=== PATIENT | female | born 1965 | race American Indian/Alaskan Native ===

== ENCOUNTER 2017-06-06 12:50 | Emergency (ER) | payer OTHER ==
--- NOTE | 2017-06-06 13:38 | Emergency Department Report ---
Entered by HOLDEN NEVAREZ, acting as scribe for HALEY DAVIS NP. Chief Complaint: Pain General Stated Complaint: CONSTIPATION/GAS/HEMORRHOIDS Time Seen by Provider: 06/06/17 13:20 - HPI History of Present Illness: Pt is a 51 y.o. female who presents to ED for evaluation of one month hx of recurrent constipation with associated rectal pain when straining to stool. She states that her last BM was yesterday, at which time she was only able to produce a small amount of stool despite significant straining. Prior to that, two days ago she had 2-3 BMs. She denies blood in stool, fever, headache, chest pain, or N/V. Pt is prescribed daily Miralax. - ROS Review of Systems: positive for constipation and rectal pain negative for blood in stool, fever, headache, chest pain, or N/V - Exam Vital Signs: Vital Signs 06/06/17 13:14 Temperature 98.1 F Pulse Rate 102 H Respiratory 20 Rate Blood Pressure 188/102 O2 Sat by Pulse 97 Oximetry Physical Exam: Constitutional: Well-developed, well-nourished. NAD. Abdominal: Soft, non-tender Neuro: A&Ox3 MSE screening note: Focused history and physical exam performed. Due to findings the following was ordered: Ordered labs and abdominal x-ray ED Disposition for MSE Condition: Stable This documentation as recorded by the scribe,HOLDEN NEVAREZ,accurately reflects the service I personally performed and the decisions made by ,HALEY DAVIS NP.
[2017-06-06 14:07] LABS: Basophils % (Auto) 0.6 % (0.0-1.8); Eosinophils % (Auto) 0.4 % (0.0-4.3); Hematocrit 45.8 % (30.3-42.9); Hemoglobin 15.5 gm/dl (10.1-14.3); Mean Corpuscular HGB Conc 34 % (30-34); Mean Corpuscular Hemoglobin 32 pg (28-32); Mean Corpuscular Volume 95 fl (79-97); Platelet Count 306 K/mm3 (140-440); Red Blood Count 4.84 M/mm3 (3.65-5.03); Red Cell Distribution Width 13.4 % (13.2-15.2); White Blood Count 9.4 K/mm3 (4.5-11.0)
[2017-06-06 14:16] LABS: Alanine Aminotransferase 19 units/L (7-56); Albumin 4.7 g/dL (3.9-5); Albumin/Globulin Ratio 1.5 %; Alkaline Phosphatase 111 units/L (35-129); Anion Gap 22 mmol/L; BUN/Creatinine Ratio 13.33; Blood Urea Nitrogen 8 mg/dL (7-17); Calcium 9.6 mg/dL (8.4-10.2); Carbon Dioxide 22 mmol/L (22-30); Glucose 120 mg/dL (65-100); Lipase 18 units/L (13-60); Potassium 3.6 mmol/L (3.6-5.0); Sodium 141 mmol/L (137-145); Total Protein 7.9 g/dL (6.3-8.2)
--- NOTE | 2017-06-06 14:27 | XRay Report ---
SUPINE KUB: History: Abdominal pain. The abdominal gas pattern is unremarkable. No masses or organomegaly is identified and there is no gross evidence of free air or fluid. No significant soft tissue calcifications are noted. IMPRESSION: Normal study.
--- NOTE | 2017-06-06 20:42 | Emergency Department Report ---
HPI - General Chief Complaint: Pain General Time Seen by Provider: 06/06/17 13:20 - HPI HPI: Room 5 The patient is a 51-year-old female presenting with chief complaint of constipation and rectal irritation. The patient states she's been constipated for several months for the past 2 months she is intermittently uses laxatives with temporary relief. The patient states her last bowel movement occurred yesterday and just a small amount. Patient states for the past week she has had rectal soreness whenever she sits down. Patient denies any pain when not applying direct pressure to her buttocks. Patient denies bright red blood per rectum or unexplained weight loss. Patient denies pain while having a bowel movement. Patient denies any history of fever. When asked how she is currently feeling the patient states she feels "good" and is just hungry. Location: Gastrointestinal system Duration: [see above] Quality: Constipation Severity: Moderate Modifying factors: [see above] Context: [see above] Mode of transportation: Unknown ED Past Medical Hx - Past Medical History Previous Medical History?: Yes Hx Hypertension: Yes - Surgical History Past Surgical History?: No - Family History Family history: no significant - Social History Smoking Status: Current Every Day Smoker Substance Use Type: None (denies illicit drug use), Prescribed, Other - Medications Home Medications: Home Medications Medication Instructions Recorded Confirmed Last Taken Type HYDROcodone/APAP 10-325 [[place] 1 each PO Q6HR PRN #10 tablet 09/27/15 Unknown Rx 10/325] amLODIPine [Norvasc] 10 mg PO DAILY #30 tab 09/27/15 Unknown Rx Docusate Sodium [Colace] 100 mg PO BID #60 capsule 06/06/17 Unknown Rx Hydrocortisone [Anucort-HC SUPPOS] 25 mg RC BID #10 supp.rect 06/06/17 Unknown Rx Lactulose [Cephulac] 20 gm PO QDAY #90 ml 06/06/17 Unknown Rx ED Review of Systems ROS: Stated complaint: CONSTIPATION/GAS/HEMORRHOIDS Other details as noted in HPI Comment: All other systems reviewed and negative Constitutional: denies: chills, fever Eyes: denies: eye pain, eye discharge, vision change ENT: denies: ear pain, throat pain Respiratory: denies: cough, shortness of breath, wheezing Cardiovascular: denies: chest pain, palpitations Endocrine: no symptoms reported Gastrointestinal: constipation Genitourinary: denies: urgency, dysuria, discharge Musculoskeletal: denies: back pain, joint swelling, arthralgia Skin: denies: rash, lesions Neurological: denies: headache, weakness, paresthesias Psychiatric: denies: anxiety, depression Hematological/Lymphatic: denies: easy bleeding, easy bruising Physical Exam - Physical Exam Vital Signs: Vital Signs 06/06/17 13:14 Temperature 98.1 F Pulse Rate 102 H Respiratory 20 Rate Blood Pressure 188/102 O2 Sat by Pulse 97 Oximetry Physical Exam: GENERAL: The patient is well-developed well-nourished female lying on stretcher not appearing to be in acute distress. [] HEENT: Normocephalic. Atraumatic. Extraocular motions are intact. Patient has moist mucous membranes. NECK: Supple. No meningitic signs are noted. There is no adenopathy noted. CHEST/LUNGS: Clear to auscultation. There is no respiratory distress noted. HEART/CARDIOVASCULAR: Regular. There is no tachycardia. There is no gallop rub or murmur. ABDOMEN: Abdomen is soft, nontender. Patient has normal bowel sounds. There is no abdominal distention. SKIN: There is no rash. There is no edema. There is no diaphoresis. NEURO: The patient is awake, alert, and oriented. The patient is cooperative. The patient has normal speech MUSCULOSKELETAL: There is no evidence of acute injury. RECTAL: No external hemorrhoids visualized. No internal hemorrhoids palpated. No fecal impaction detected. Guaiac negative ED Course Vital Signs 06/06/17 13:14 Temperature 98.1 F Pulse Rate 102 H Respiratory 20 Rate Blood Pressure 188/102 O2 Sat by Pulse 97 Oximetry ED Medical Decision Making - Lab Data Result diagrams: 06/06/17 13:39 06/06/17 13:39 Laboratory Tests 06/06/17 06/06/17 13:39 13:39 WBC 9.4 RBC 4.84 Hgb 15.5 H Hct 45.8 H MCV 95 MCH 32 MCHC 34 RDW 13.4 Plt Count 306 Lymph % (Auto) 24.4 [place] % (Auto) 7.1 Eos % (Auto) 0.4 Baso % (Auto) 0.6 Lymph # 2.3 [place] # 0.7 Eos # 0.0 Baso # 0.1 Seg Neutrophils % 67.5 Seg Neutrophils # 6.4 Sodium 141 Potassium 3.6 Chloride 101.0 Carbon Dioxide 22 Anion Gap 22 BUN 8 Creatinine 0.6 L Estimated GFR > 60 BUN/Creatinine Ratio 13.33 Glucose 120 H Calcium 9.6 Total Bilirubin 0.40 AST 20 ALT 19 Alkaline Phosphatase 111 Total Protein 7.9 Albumin 4.7 Albumin/Globulin Ratio 1.5 Lipase 18 - Radiology Data Radiology results: report reviewed (abdominal x-ray), image reviewed (abdominal x-ray) interpreted by me: Abdominal c-maf-excelhqioitt. No free air, no air-fluid levels Abdominal x-ray (read by radiologist)-normal study. - Differential Diagnosis constipation, hemorrhoids Critical care attestation.: If time is entered above; I have spent that time in minutes in the direct care of this critically ill patient, excluding procedure time. ED Disposition Clinical Impression: Constipation, Buttock pain Disposition: - TO HOME OR SELFCARE Is pt being admited?: No Does the pt Need Aspirin: No Condition: Stable Instructions: Constipation (ED) Additional Instructions: Return to the emergency department immediately should you develop worsening symptoms, fever, inability to tolerate food or liquid or any other concerns. Prescriptions: Docusate Sodium [Colace] 100 mg PO BID #60 capsule Hydrocortisone [Anucort-HC SUPPOS] 25 mg RC BID #10 supp.rect Lactulose [Cephulac] 20 gm PO QDAY #90 ml Referrals: PRIMARY CARE, [Primary Care Provider] - 3-5 Days [facility] [Provider Group] - 3-5 Days CATHRYN العراقي MD [Staff Physician] - [facility] (Dr. العراقي is a [employer]. Please follow up with him for further evaluation) Time of Disposition: 20:45
[2017-06-06 21:07] VITALS: BP 167/82
== END 2017-06-06 21:08 | disposition home or self-care (01) ==
LOC: ED 12:50
DX: K59.00 Constipation, unspecified (principal); I10 Essential (primary) hypertension; M25.559 Pain in unspecified hip; F17.200 Nicotine dependence, unspecified, uncomplicated
CPT/HCPCS: 36415; 74000; 80053; 82271; 83690; 85025

== ENCOUNTER 2021-08-03 14:10 | Outpatient (CLI) | payer OTHER ==
--- NOTE | 2021-08-03 15:36 | XRay Report ---
BILATERAL KNEES HISTORY: Bilateral knee pain. COMPARISON: None. TECHNIQUE: 3 views of both knees were obtained. FINDINGS: Bones: No evidence of acute fracture or dislocation. Joint spaces: Slight medial compartment joint space narrowing without significant degenerative change . Soft tissues: Small right joint effusion. Additional findings: Extensive vascular calcifications throughout both partially visualized lower ext remities. IMPRESSION: No evidence acute osseous injury within the bilateral knees. Slight medial compartment joint space narrowing bilaterally without significant degenerative change. Small right joint effusion. Signer Name: Guanakito Dunlap MD Signed: 08/03/2021 3:31 PM Workstation Name: [id number]
--- NOTE | 2021-08-03 15:42 | XRay Report ---
BILATERAL HANDS HISTORY: Bilateral hand pain. COMPARISON: None. TECHNIQUE: 3 views of both hands were obtained. FINDINGS: Bones: No acute fracture or dislocation. Joint space narrowing at the bilateral first carpometacarpa l and metacarpophalangeal joints, slightly worse on the right. There are slight suspected overhanging osteophytes at the second and third metacarpal heads. Soft tissues: No significant abnormality. Additional findings: None. IMPRESSION: No evidence of acute osseous injury within the bilateral hands. Slight joint space narrowing the bilateral first carpometacarpal and metacarpophalangeal joints, slig htly worse on the right. Slight suspected overlying osteophytes at the second and third metacarpal heads. This is a nonspecifi c finding, but can be seen in the setting of hemachromatosis. Recommend clinical correlation. Signer Name: Guanakito Dunlap MD Signed: 08/03/2021 3:38 PM Workstation Name: [id number]
--- NOTE | 2021-08-03 15:46 | XRay Report ---
BILATERAL HIP HISTORY: Bilateral hip pain. COMPARISON: None. TECHNIQUE: 2 views of the bilateral hips were obtained. FINDINGS: Bones: No acute fracture or dislocation. Joint spaces: Severe right greater than left joint space narrowing which is most pronounced medially. There is near rhcb-pf-gqah joint space narrowing in these regions with prominent subchondral cyst fo rmation. Soft tissues: No significant abnormality. Additional findings: None. IMPRESSION: No evidence of acute osseous injury involving the bilateral hips. Severe right greater than left hip degenerative change with near jhgn-ry-zoav joint space narrowing w hich is most pronounced medially. Signer Name: Guanakito Dunlap MD Signed: 08/03/2021 3:42 PM Workstation Name: [id number]
--- NOTE | 2021-08-03 15:50 | XRay Report ---
Lumbar SPINE HISTORY: Back pain. COMPARISON: None. TECHNIQUE: 3 view(s) of the lumbar spine obtained. FINDINGS: Vertebrae: Normal alignment. No fracture or significant abnormality. Disc Spaces:Moderate to severe degenerative change which appears worse at L5/S1 and to a lesser exten t L3/L4. Facet Joints:Lower lumbar facet arthropathy. Prevertebral Soft Tissues:No significant abnormality. Additional findings: None. IMPRESSION: Lumbar spine without evidence of acute osseous injury. Moderate to severe degenerative change which appears worse at L5/S1 and to a lesser extent L3/L4. Signer Name: Guanakito Dunlap MD Signed: 08/03/2021 3:46 PM Workstation Name: [id number]
== END 2021-08-03 14:11 | disposition home or self-care (01) ==
LOC: XRAY 14:10
PROVIDERS: ATTEND Internal Medicine
DX: M16.0 Bilateral primary osteoarthritis of hip (principal); M19.042 Primary osteoarthritis, left hand; M19.041 Primary osteoarthritis, right hand; M17.0 Bilateral primary osteoarthritis of knee; M25.461 Effusion, right knee; M47.817 Spondylosis without myelopathy or radiculopathy, lumbosacral region
CPT/HCPCS: 72100; 73521